=== PATIENT | male | born 2000 | race Two or more races ===

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

== ENCOUNTER 2023-08-20 12:54 | Emergency (ER) | payer BC, SELFPAY ==
[2023-08-20 13:10] VITALS: BP 120/78; PULSE 50; RESP 16; TEMP 37.3; O2SAT 100
--- NOTE | 2023-08-20 13:10 | ED.URI ---
HPI - URI/Sore Throat General Chief Complaint: Upper Respiratory Infection Stated Complaint: SORE THROAT/CONGESTION Time Seen by Provider: 08/20/23 13:10 Source: patient and RN notes reviewed History of Present Illness HPI Narrative: Patient is a 23-year-old male who presents to urgent care with complaints of 1 week history of congestion, headache and drainage. Patient states that his two little brothers have strep throat. Patient denies any fever, nausea, vomiting, cough. Patient has been taking zinc, turmeric and Mucinex for symptom relief. No other acute complaints. No acute distress noted. Patient aware plan of care. Some parts of this dictation were generated by voice recognition software and may contain typographical and/or grammatical inaccuracies. Related Data Home Medications Medication Instructions Recorded Confirmed No Home Medications 08/20/23 08/20/23 Allergies Allergy/AdvReac Type Severity Reaction Status Date / Time Penicillins Allergy Mild Rash Verified 08/20/23 13:09 Review of Systems Review of Systems: CONSTITUTIONAL: Denies fever, chills, or sweats. EYES: Denies visual changes, redness, or discharge. ENT: Reports of runny nose, congestion, drainage CARDIOVASCULAR: Denies chest pain, palpitations, or edema. RESPIRATORY: Denies cough or dyspnea. GASTROINTESTINAL: Denies abdominal pain, nausea, vomiting, or diarrhea. GENITOURINARY: Denies dysuria or hematuria. SKIN: Denies rash or itching. MUSCULOSKELETAL: Denies back pain, joint pain, or myalgia. NEUROLOGIC: Reports headache All other systems reviewed are negative, except as documented in HPI. PMFSH Past Medical History Medical History (Updated 08/20/23 @ 13:26 by JAS Richards) Fracture, clavicle closed, shaft Social History Social History Gender identity (if verbalized by the patient): Male Comments At the time of my signature, I reviewed and agree with the nursing past medical, surgical, social, and family history. There is no relevant family history pertinent to the patient complaint. Exam Narrative: GENERAL: This is a well-nourished, well-developed patient, in no apparent distress. HEAD: normocephalic, atraumatic. EYES: PERRL. Sclera clear/white. Vision is grossly intact. EARS: External ears normal, auditory canals clear and without drainage, TMs normal without perforation. Hearing grossly intact. NOSE: External nose normal with no obvious nasal discharge, nares without redness, no rhinorrhea. THROAT: Mucous membranes moist, mild erythema to posterior oropharynx with moderate postnasal drainage NECK: Neck supple, non-tender without lymphadenopathy, masses or thyromegaly. CARDIOVASCULAR: Regular rate and rhythm without murmurs, gallops, or rubs. RESPIRATORY: Clear to auscultation. Breath sounds equal bilaterally. No wheezes, rales, or rhonchi. SKIN: warm, intact with no suspicious lesions or rash, good texture and turgor. NEURO: awake, alert, and oriented to person, place and time. There were no obvious focal neurologic abnormalities. EXTREMITIES: No clubbing, cyanosis, or edema. Course Course Level of Care: Express Care Visit Vital Signs Vital signs: Vital Signs Temperature 99.1 F 08/20/23 13:10 Pulse Rate 50 L 08/20/23 13:10 Respiratory Rate 16 08/20/23 13:10 Blood Pressure 120/78 08/20/23 13:10 Pulse Oximetry 100 08/20/23 13:10 Temperature 99.1 F 08/20/23 13:10 Pulse Rate 50 L 08/20/23 13:10 Respiratory Rate 16 08/20/23 13:10 Blood Pressure 120/78 08/20/23 13:10 Pulse Oximetry 100 08/20/23 13:10 Reviewed MDM - URI/Sore Throat MDM Narrative Medical decision making narrative: Reviewed lab results with the patient. He is aware that strep swab was negative. Educated patient on culture we will call within 72 hours if culture is positive and antibiotics are necessary. Advised patient to use Claritin/Zyrt
== END 2023-08-20 13:28 | disposition home or self-care (01) ==
PROVIDERS: Emergency Provider Nurse Practitioner Family
DX: J02.9 Acute pharyngitis, unspecified (principal)
CPT/HCPCS: 87081; 87880; 99213; G0463